=== PATIENT | male | born 1980 | race African-American/Black ===

== ENCOUNTER 2017-06-27 14:48 | Emergency (ER) | payer OTHER ==
[~2017-06-27] VITALS: Ht 165.1 cm; Wt 61.2 kg
[2017-06-27 15:32] VITALS: BP 115/71
== END 2017-06-27 19:15 | disposition left against medical advice (07) ==
LOC: ER 14:48
DX: M79.641 Pain in right hand (principal); Z53.21 Procedure and treatment not carried out due to patient leaving prior to being seen by health care provider

== ENCOUNTER 2024-05-14 00:02 | Emergency (ER) | payer OTHER ==
[~2024-05-14] VITALS: Ht 165.1 cm; Wt 54.6 kg
--- NOTE | 2024-05-14 00:55 | DVH ---
CLINICAL INDICATION: Laceration, pain TECHNIQUE: 3 radiographic views of the left hand were obtained. Comparison: None FINDINGS: There is no evidence of acute fracture or dislocation. The visualized joint space is well maintained. The alignment is anatomical. Soft tissue injury of the 3rd digit. IMPRESSION: 1. No acute fracture or dislocation.
[2024-05-14 01:00] VITALS: BP 124/90; PULSE 82; RESP 16; TEMP 97; O2SAT 98
[2024-05-14] MEDS ORDERED: CEPH500C PO (02:20)
[2024-05-14] MEDS ORDERED: IBUP-1456 PO (02:20)
--- NOTE | 2024-05-14 02:21 | ED.PDOC ---
HPI Comments 43-year-old male presents to ER with complaints of laceration to left 3rd finger x 10 minutes. Patient reports that his accidentally shut the car door on his left 3rd finger 10 minutes prior to arrival to ER and sustained laceration to left 3rd finger at that time. He rates his current pain a 7/10 to left 3rd finger without radiation. Denies use of medications for current symptoms. Denies numbness/tingling, left wrist pain or any further symptoms/complaints Chief Complaint: Laceration Time Seen by MD: 00:18 Primary Care Provider: NONE Reviewed Notes: Nurses Notes, Medications, Allergies Allergies: Coded Allergies: Penicillins (Verified Allergy, Severe, RASH, 07/09/15) Home Meds Active Scripts Cephalexin Monohydrate (Cephalexin) 500 Mg Cap, 1 CAP PO BID for 7 Days, #14 CAP 0 Refills Prov:JANET NAM 05/14/24 Ibuprofen (Ibuprofen) 800 Mg Tab, 1 TAB PO TID PRN, #30 TAB 0 Refills Prov:JANET NAM 05/14/24 Information Source: Patient Mode of Arrival: Ambulatory Complexity: Simple Last Tetanus: UTD Laceration Length (cm): 3 Skin Type: Jagged Past Medical History PAST MEDICAL HISTORY: Anxiety Surgical History: Denies all surgeries Family History Family History: Unknown Social History Smoker: Non-Smoker Alcohol: Denies ETOH Use Drugs: Denies Drug Use Lives In: Home Constitutional: denies: chills, diaphoresis, fatigue, fever, malaise, sweats, weakness, others EENTM: denies: blurred vision, double vision, ear bleeding, ear discharge, ear drainage, ear pain, ear ringing, eye pain, eye redness, hearing loss, mouth pain, mouth swelling, nasal discharge, nose bleeding, nose congestion, nose pain, photophobia, tearing, throat pain, throat swelling, voice changes, others Respiratory: denies: cough, hemoptysis, orthopnea, SOB at rest, shortness of breath, SOB with excertion, stridor, wheezing, others Cardiovascular: denies: chest pain, dizzy spells, diaphoresis, Dyspnea on exertion, edema, irregular heart beat, left arm pain, lightheadedness, palpitations, PND, syncope, others Gastrointestinal: denies: abdomen distended, abdominal pain, blood streaked bowels, constipated, diarrhea, dysphagia, difficulty swallowing, hematemesis, melena, nausea, poor appetite, poor fluid intake, rectal bleeding, rectal pain, vomiting, others Genitourinary: denies: burning, dysuria, flank pain, frequency, hematuria, incontinence, penile discharge, penile sore, pain, testicle pain, testicle swelling, urgency, others Neurological: denies: dizziness, fainting, headache, left sided numbness, left sided weakness, numbness, paresthesia, pre-existing deficit, right sided numbness, right sided weakness, seizure, speech problems, tingling, tremors, weakness, others Musculoskeletal: reports: others (As stated in HPI) Integumetry: reports: others (As stated in HPI) Allergic/Immunocompromised: denies: Difficulty Healing, Frequent Infections, Hives, Itching, others Hematologic/Lymphatic: denies: anemia, blood clots, easy bleeding, easy bruising, swollen glands, others Endocrine: denies: excessive hunger, excessive sweating, excessive thirst, excessive urination, flushing, intolerance to cold, intolerance to heat, unexplained weight gain, unexplained weight loss, others Psychiatric: denies: anxiety, bipolar disorder, depression, hopeless, panic disorder, schizophrenia, sleepless, suicidal, others Physical Exam General Appearance: No Apparent Distress HEENT: PERRL/EOMI Neck: Full Range of Motion, Non-Tender, Normal Respiratory: Chest Non-Tender, Lungs Clear, No Accessory Muscle Use, No Respiratory Distress, Normal Breath Sounds Cardiovascular: No Murmur, No Gallop, Regular Rate/Rhythm Breast Exam: Deferred Gastrointestinal: NOT DONE Genitalia: Deferred Pelvic: Deferred Rectal: Deferred Extremities: Normal capillary refill, Normal range of motion Neurologic: Alert, No Motor Deficits, Normal Affect, Normal Mood, No Sensory Deficits Cerebellar Function: Normal Reflexes: Normal Skin: Dry, Warm Peripheral Pulses: 2+ Radial (R), 2+ Radial (L), 2+ Brachial (R), 2+ Brachial (L) Lymphatic: No Adenopathy Was a procedure done? Was a procedure done?: Yes Sedation Sedation?: No Laceration Repair : Location Left 3rd finger Length 3 cm Anesthetic: Lidocaine (1%), Digital nerve block Laceration Repair Prep: Saline, Betadine, by Irrigation (without any signs of foreign body) Laceration Repair Wound Comple: epidermis/dermis repair Laceration Repair: Number of sutures (3 placed without complication), Size (4-0), Nylon, Simple, Non-adherent gauze (And finger splint to prevent wound dehiscence) Informed consent obtained: Yes Risks, benefits, and alternati: Yes Images 1 - 3 cm laceration noted. Slight TTP/erythema/swelling localized to wound edges. No further skin changes noted. Patient able to fully move all fingers of left hand. Pulses intact Differential diagnosis Generic Laceration: Fracture, Retained Foriegn Body, Neurovascular Injury X-Ray, Labs, Meds, VS Vital Signs Date Time Temp Pulse Resp B/P (MAP) Pulse Ox O2 Delivery O2 Flow Rate FiO2 05/14/24 00:13 97.9 82 16 120/93 (102 97 PATIENT: STONEY MARIAT: [id number] UNIT: [id number] : 1980 LOC: ER ROOM / BED: / AGE / SEX: 43 / M ADM STATUS: REG ER SERVICE ORDERING PHYSICIAN: JANET NAM PROCEDURE(s): LFIN3 - L 3RD FINGER XRAY REASON: Laceration, pain ORDER NUMBER(s): [id number], ACCESSION NUMBER(s): [id number] CLINICAL INDICATION: Laceration, pain TECHNIQUE: 3 radiographic views of the left hand were obtained. Comparison: None FINDINGS: There is no evidence of acute fracture or dislocation. The visualized joint space is well maintained. The alignment is anatomical. Soft tissue injury of the 3rd digit. IMPRESSION: 1. No acute fracture or dislocation. ATED BY: JIHAN DAVIDSON DO DICTATED DATE/TIME: 05/14/2452 SIGNED BY: JIHAN DAVIDSON DO SIGNED DATE/TIME: 05/14/2452 CC: Left 3rd finger x-ray reviewed Patient neurovascularly intact Wound care/cleaning discussed and advised Advised on rest/no strenuous activity, elevation and alternate ice on/off as needed for pain/swelling Advised to follow up in two days for wound check Advised to follow up in 10-14 days for removal of sutures Advised to follow up PCP in 1-2 days Patient verbalized understanding and agreeable with current plan of care Advised to return to ER immediately if symptoms worsen Images Reviewed?: Images reviewed and evaluated by me Time of 1ST Reevaluation: 01:54 Reevaluation 1ST: N/A Patient Education/Counseling: Diagnosis, Treatment, Prognosis, Need For Follow Up Family Education/Counseling: No Family Present Departure 1 Departure Time of Disposition: 02:12 Impression: Primary Impression: Laceration of middle finger Qualified Codes: S61.213A - Laceration without foreign body of left middle finger without damage to nail, initial encounter Disposition: HOME / SELF CARE / HOMELESS Condition: Stable e-Prescriptions Cephalexin Monohydrate (Cephalexin) 500 Mg Cap 1 CAP PO BID for 7 Days, #14 CAP 0 Refills Prov: JANET NAM 05/14/24 Ibuprofen (Ibuprofen) 800 Mg Tab 1 TAB PO TID PRN, #30 TAB 0 Refills Prov: JANET NAM 05/14/24 Discharged With: Significant Other Critical Care Note Critical Care Time?: No Stability Stability form required: No Heart Score Heart Score: Heart Score Response (Comments) Value History N/A 0 EKG N/A 0 Age N/A 0 Risk Factors N/A 0 Troponin N/A 0 Total 0 JANET NAM May 14, 2024 02:21
[2024-05-14] MEDS ORDERED: DOXY100C4 PO (21:24)
== END 2024-05-14 03:22 | disposition home or self-care (01) ==
LOC: ER 00:02
DX: S61.213A Laceration without foreign body of left middle finger without damage to nail, initial encounter (principal); F41.9 Anxiety disorder, unspecified; Z88.0 Allergy status to penicillin; Z79.899 Other long term (current) drug therapy; W22.8XXA Striking against or struck by other objects, initial encounter; Y93.89 Activity, other specified; Y92.89 Other specified places as the place of occurrence of the external cause; Y99.8 Other external cause status
CPT/HCPCS: 12002; 73140